=== PATIENT | male | born 1950 | race American Indian/Alaskan Native ===

== ENCOUNTER 2021-03-07 08:37 | Observation (INO) | payer MEDICARE ==
[2021-03-04 10:43] LABS: Albumin 4.4 g/dL (3.9-5); Calcium 9.9 mg/dL (8.4-10.2)
[2021-03-04 11:59] LABS: Hematocrit 39.6 % (35.5-45.6); Hemoglobin 13.5 gm/dl (11.8-15.2); Mean Corpuscular HGB Conc 34 % (32-34); Mean Corpuscular Volume 91 fl (84-94); Platelet Count 209 K/mm3 (140-440); Red Blood Count 4.35 M/mm3 (3.65-5.03); Red Cell Distribution Width 14.5 % (13.2-15.2)
[2021-03-04 12:42] LABS: Eosinophils # (Auto) 0.1 K/mm3 (0.0-0.4); Eosinophils % (Auto) 2.2 % (0.0-4.3); Lymphocytes # (Auto) 1.9 K/mm3 (1.2-5.4); Lymphocytes % (Auto) 38.6 % (13.4-35.0); Monocytes # (Auto) 0.5 K/mm3 (0.0-0.8); Monocytes % (Auto) 9.6 % (0.0-7.3)
[2021-03-04 12:55] LABS: Basophils % (Auto) 0.5 % (0.0-1.8)
[2021-03-07] MEDS ORDERED: ONDANSETRON 4 MG/2 ML INJ IV PRN ×2 (10:01→12:47)
[2021-03-07] MEDS ORDERED: HYDROmorphone 1 MG/1 ML INJ IV PRN ×2 (10:01)
--- NOTE | 2021-03-07 10:01 | Anesthesia Day of Surgery ---
Anesthesia Day of Surgery - Day of Surgery Patient Examined: Yes Patient H&P Reviewed: Yes Patient is NPO: Yes
--- NOTE | 2021-03-07 10:04 | Anesthesia Consultation ---
Anesthesia Consult and Med Hx Date of service: 03/07/21 - Airway Anesthetic Teeth Evaluation: Good (Missing) ROM Head & Neck: Adequate Mental/Hyoid Distance: Adequate Mallampati Class: Class II Intubation Access Assessment: Good - Pre-Operative Health Status ASA Pre-Surgery Classification: ASA2 Proposed Anesthetic Plan: General - Pulmonary Hx Smoking: No Hx Respiratory Symptoms: No (+2FS; walks one mile qd) Hx Sleep Apnea: No (DAMASO PRE SCREEN HIGH RISK) - Cardiovascular System Hx Hypertension: Yes (X 10 YRS. States he's had ECGs and one this year) Hx Cardia Arrhythmia: Yes - Central Nervous System Hx Psychiatric Problems: No - Endocrine Hx Renal Disease: Yes (Cr-1.6) - Hematic Hx Anemia: No - Other Systems Hx Cancer: No
[2021-03-07] MEDS ORDERED: LACTATED RINGERS 1,000 ML IV SCH (10:30)
[2021-03-07] MEDS ORDERED: MIDAZOLAM 2 MG/2 ML INJ IV NR (11:00)
[2021-03-07] MEDS ORDERED: propofoL 200 MG/20 ML VIAL IV ONE (11:01)
[2021-03-07] MEDS ORDERED: LIDOCAINE MPF (2%) 20 MG/1 ML VIAL 5 ML ONE (11:01)
[2021-03-07] MEDS ORDERED: HYDROmorphone 1 MG/1 ML INJ ONE (11:02)
--- NOTE | 2021-03-07 11:23 | Electrocardiograph Report ---
[facility] Test Date: 2021-03-07 Test Time: 10:29:58 Pat Name: JOY LESTER II Department: Room: Gender: M Transition Lead: NELLY : 1950 Requested By: LES BAR Order Number: [id number] Reading MD: Matthew Upton Measurements Intervals [place] Rate: 63 P: 2 NH: 166 QRS: 3 QRSD: 96 T: 19 QT: 396 QTc: 405 Interpretive Statements Sinus rhythm Supraventricular bigeminy No previous ECG available for comparison Electronically Signed On 03-07-2021 11:23:03 EDT by Matthew Upton
[2021-03-07] MEDS ORDERED: ceFAZolin/STERILE WATER 2 GM/20 ML SYRINGE IV NR (11:27)
[2021-03-07] MEDS ORDERED: MANNITOL/SORBITOL SOLUTION 3,000 ML IRRIG.SOLN IR ONE ×2 (12:00)
[2021-03-07] MEDS ORDERED: WATER FOR IRRIG STERILE 2000 ML IR ONE ×3 (12:01)
[2021-03-07] MEDS ORDERED: SODIUM CHLORIDE 0.9% IRRIG SOLN 2000 ML IR ONE ×2 (12:05)
[2021-03-07] MEDS ORDERED: ONDANSETRON 4 MG/2 ML INJ ONE (12:31)
--- NOTE | 2021-03-07 12:31 | Short Stay Summary ---
Short Stay Documentation Date of service: 03/07/21 - History H&P: obtained from office - Allergies and Medications Current Medications: Allergies No Known Allergies Allergy (Verified 03/04/21 10:38) Home Medications Medication Instructions Recorded Confirmed Last Taken Type Aspirin [Adult Aspirin] 81 mg PO DAILY 02/25/21 02/25/21 Unknown History Active Medications Cefazolin Sodium (Cefazolin/Sterile Water 2 Gm/20 Ml Syringe) 2 gm IV PREOP NR Stop: 03/07/21 23:00 Hydromorphone HCl (Hydromorphone 1 Mg/1 Ml Inj) 0.25 mg IV Q10MIN PRN PRN Reason: Pain, Moderate (4-6) Stop: 03/07/21 23:00 Hydromorphone HCl (Hydromorphone 1 Mg/1 Ml Inj) 0.5 mg IV Q10MIN PRN PRN Reason: Pain , Severe (7-10) Stop: 03/07/21 23:00 Lactated Ringer's (Lactated Ringers) 1,000 mls @ 125 mls/hr IV DIRECT CARIN Midazolam HCl (Midazolam 2 Mg/2 Ml Inj) 2 mg IV PREOP NR Stop: 03/07/21 23:59 Ondansetron HCl (Ondansetron 4 Mg/2 Ml Inj) 4 mg IV ONCE PRN PRN Reason: Nausea And Vomiting Stop: 03/07/21 20:00 - Brief post op/procedure progress note Date of procedure: 03/07/21 Pre-op diagnosis: bph, retention Post-op diagnosis: same Procedure: cysto, TURP Anesthesia: GETA Surgeon: DELFIN TORO Estimated blood loss: 50-100ml Pathology: list (prostate chips) Specimen disposition: to lab Condition: stable - Hospital course Hospital course: pt has bax & pain meds [place] pink tinged---home with nowak norco & bactrim - Disposition Condition at discharge: Stable Short Stay Discharge Plan Follow up with: MARIANNA AGUILLON MD [Primary Care Provider] - 7 Days
[2021-03-07] MEDS ORDERED: ACETAMINOPHEN 325 MG TAB PO PRN (12:47)
[2021-03-07] MEDS ORDERED: ZOLPIDEM 5 MG TAB PO PRN (12:47)
[2021-03-07] MEDS ORDERED: diphenhydrAMINE 25 MG CAP PO PRN (12:47)
[2021-03-07] MEDS ORDERED: NALOXONE 0.4 MG/1 ML INJ IV PRN (12:47)
[2021-03-07] MEDS ORDERED: HYDROcodone/ACETAMINOPHEN 5-325 MG TAB PO PRN (12:47)
--- NOTE | 2021-03-07 13:16 | Consultation ---
History of Present Illness - Reason for Consult Consult date: 03/07/21 Medical Management Requesting physician: DELFIN AIKEN - History of Present Illness 70 YO Male with Obesity, HTN, HLD, DM, OA admitted for Urologic surgery. Consult placed by Dr. Aiken for medical management. Patient seen and evaluated upon arrival to his room. Patient resting comfortably. Has pain. No reported nursing events. Past History Past Medical History: arthritis, diabetes, hypertension, hyperlipidemia Past Surgical History: Other (Prostatectomy) Social history: single. denies: smoking, alcohol abuse Family history: diabetes, hypertension Medications and Allergies Allergies Allergy/AdvReac Type Severity Reaction Status Date / Time No Known Allergies Allergy Verified 03/04/21 10:38 Home Medications Medication Instructions Recorded Confirmed Last Taken Type Aspirin [Adult Aspirin] 81 mg PO DAILY 02/25/21 03/07/21 02/28/21 History Finasteride [Proscar] 5 mg PO DAILY 03/07/21 03/07/21 03/06/21 History Ibuprofen [Motrin] 800 mg PO Q8HR PRN 03/07/21 03/07/21 02/28/21 History Losartan [Cozaar] 50 mg PO QDAY 03/07/21 03/07/21 03/06/21 History Meloxicam [Mobic] 15 mg PO DAILY 03/07/21 03/07/21 03/06/21 History Pravastatin [Pravachol] 80 mg PO QHS 03/07/21 03/07/21 03/06/21 History Sulfamethoxazole/Trimethoprim 1 each PO BID 03/07/21 03/07/21 03/06/21 History [Bactrim DS TAB] Tadalafil [Cialis] 5 mg PO DAILY 03/07/21 03/07/21 03/06/21 History Tamsulosin [Flomax] 0.4 mg PO DAILY 03/07/21 03/07/21 03/06/21 History amLODIPine [Norvasc] 10 mg PO DAILY 03/07/21 03/07/21 03/06/21 History metFORMIN [Glucophage] 500 mg PO BID 03/07/21 03/07/21 03/06/21 History oxyCODONE /ACETAMINOPHEN [Percocet 1 tab PO Q6HR PRN 03/07/21 03/07/21 03/06/21 History 5/325] tiZANidine [Zanaflex 4mg TAB] 4 mg PO DAILY 03/07/21 03/07/21 03/06/21 History Active Meds: Active Medications Acetaminophen (Acetaminophen 325 Mg Tab) 650 mg PO Q4H PRN PRN Reason: Pain, Mild (1-3)/Fever > 100.5 Hydrocodone Bitart/Acetaminophen (Hydrocodone/Acetaminophen 5-325 Mg Tab) 2 each PO Q4H PRN PRN Reason: Pain, Moderate (4-6) Amlodipine Besylate (Amlodipine 10 Mg Tab) 10 mg PO DAILY CARIN Cefazolin Sodium (Cefazolin/Sterile Water 2 Gm/20 Ml Syringe) 2 gm IV PREOP NR Stop: 03/07/21 23:00 Diphenhydramine HCl (Diphenhydramine 25 Mg Cap) 25 mg PO Q6H PRN PRN Reason: Itching Finasteride (Finasteride 5 Mg Tab) 5 mg PO DAILY CARIN Hydromorphone HCl (Hydromorphone 1 Mg/1 Ml Inj) 0.25 mg IV Q10MIN PRN PRN Reason: Pain, Moderate (4-6) Stop: 03/07/21 23:00 Hydromorphone HCl (Hydromorphone 1 Mg/1 Ml Inj) 0.5 mg IV Q10MIN PRN PRN Reason: Pain , Severe (7-10) Stop: 03/07/21 23:00 Lactated Ringer's (Lactated Ringers) 1,000 mls @ 125 mls/hr IV DIRECT CARIN Last Admin: 03/07/21 10:50 Dose: 125 mls/hr Documented by: Sodium Chloride (Nacl 0.9% 1000 Ml) 1,000 mls @ 100 mls/hr IV DIRECT CARIN Losartan Potassium (Losartan 50 Mg Tab) 50 mg PO QDAY CARIN Metformin HCl (Metformin 500 Mg Tab) 500 mg PO BID CARIN Midazolam HCl (Midazolam 2 Mg/2 Ml Inj) 2 mg IV PREOP NR Stop: 03/07/21 23:59 Last Admin: 03/07/21 10:55 Dose: 2 mg Documented by: Morphine Sulfate (Morphine 4 Mg/1 Ml Inj) 4 mg IV Q4H PRN PRN Reason: Pain , Severe (7-10) Naloxone HCl (Naloxone 0.4 Mg/1 Ml Inj) 0.1 mg IV Q2MIN PRN PRN Reason: Res Rate </= 8 or 02 SAT < 92% Ondansetron HCl (Ondansetron 4 Mg/2 Ml Inj) 4 mg IV ONCE PRN PRN Reason: Nausea And Vomiting Stop: 03/07/21 20:00 Ondansetron HCl (Ondansetron 4 Mg/2 Ml Inj) 4 mg IV Q8H PRN PRN Reason: Nausea And Vomiting Pravastatin Sodium (Pravastatin 80 Mg Tab) 80 mg PO QHS CARIN Sodium Chloride (Sodium Chloride 0.9% Irrig Soln 2000 Ml) 2,000 ml IR DIRECT CARIN Tizanidine HCl (Tizanidine Tab 4 Mg Tab) 4 mg PO DAILY CARIN Verapamil HCl (Verapamil 5 Mg/2 Ml Inj) 5 mg IV ONCE ONE Stop: 03/07/21 13:11 Zolpidem Tartrate (Zolpidem 5 Mg Tab) 5 mg PO QHS PRN PRN Reason: Sleep Review of Systems Constitutional: no weight loss, no weight gain, no chills, no sweats, no night sweats Ears, nose, mouth and throat: no ear pain, no ear discharge, no nose pain, no nasal congestion, no nasal discharge, no sinus pressure Cardiovascular: no chest pain, no orthopnea, no palpitations, no edema, no syn cope, no lightheadedness Respiratory: no cough, no excessive sputum, no hemoptysis, no shortness of breath, no dyspnea on exertion Gastrointestinal: no abdominal pain, no nausea, no vomiting, no diarrhea, no constipation, no change in bowel habits Genitourinary Male: urinary hesitancy, no hematuria, no flank pain Rectal: no pain, no incontinence, no bleeding Musculoskeletal: no neck stiffness, no neck pain, no arm numbness/tingling Integumentary: no rash, no pruritis, no redness, no sores, no jaundice, no boils Neurological: no paralysis, no weakness, no numbness, no tingling, no seizures, no tremors Psychiatric: no anxiety, no memory loss, no change in sleep habits, no insomnia, no hypersomnia Endocrine: no cold intolerance, no heat intolerance, no polydipsia, no polyuria, no excessive sweating Hematologic/Lymphatic: no easy bruising, no easy bleeding, no lymphadenopathy Allergic/Immunologic: no urticaria, no allergic rhinitis, no persistent infections, no anaphylaxis Exam - Constitutional Vitals: Temp Pulse Resp BP Pulse Ox 98.6 F 96 H 20 144/81 100 03/04/21 09:30 03/04/21 09:30 03/04/21 09:30 03/04/21 09:30 03/04/21 09:30 General appearance: Present: no acute distress, obese - EENT Eyes: Present: PERRL ENT: hearing intact, clear oral mucosa - Neck Neck: Present: supple, normal ROM - Respiratory Respiratory effort: normal Respiratory: bilateral: CTA - Cardiovascular Heart Sounds: Present: S1 & S2. Absent: rub, click - Extremities Extremities: pulses symmetrical, No edema Peripheral Pulses: within normal limits - Abdominal General gastrointestinal: Present: soft, non-tender, non-distended, normal bowel sounds Male genitourinary: Present: normal - Integumentary Integumentary: Present: clear, warm, dry - Musculoskeletal Musculoskeletal: gait normal, strength equal bilaterally - Psychiatric Psychiatric: appropriate mood/affect, intact judgment & insight - Neurologic Neurologic: CNII-XII intact, moves all extremities Results - Labs CBC & Chem 7: 03/04/21 09:30 03/04/21 09:14 Labs: Abnormal lab results 03/07/21 Range/Units 12:57 POC Glucose 111 H (70-105) mg/dL Assessment and Plan - Patient Problems (1) Hypertension Current Visit: Yes Status: Acute Qualifiers: Hypertension type: primary hypertension Qualified Code(s): I10 - Essential (primary) hypertension Plan to address problem: Monitor blood pressure every 6, continue medical management, resume prehospital antihypertensive therapy, pain control. (2) Hyperlipidemia Current Visit: Yes Status: Acute Qualifiers: Hyperlipidemia type: mixed hyperlipidemia Qualified Code(s): E78.2 - Mixed hyperlipidemia Plan to address problem: Low-cholesterol diet, statin therapy, supportive care. (3) Diabetes Current Visit: Yes Status: Acute Plan to address problem: Consistent carbohydrate diet, insulin protocol, hypoglycemia protocol, supportive care.
[2021-03-07] MEDS ORDERED: VERAPAMIL 5 MG/2 ML INJ IV ONE (14:00)
[2021-03-07] MEDS: SODIUM CHLORIDE 0.9% 1000 ML 1,000 ML IV SCH ×2 (14:07→22:35)
[2021-03-07] MEDS ORDERED: DEXTROSE 50% IN WATER (25GM) 50 ML SYRINGE IV PRN (14:18)
--- NOTE | 2021-03-07 14:22 | Operative Report ---
DATE OF SURGERY: 03/07/2021 PREOPERATIVE DIAGNOSES: Urinary retention, benign prostatic hypertrophy. POSTOPERATIVE DIAGNOSES: Urinary retention, benign prostatic hypertrophy. PROCEDURE: Cystoscopy, transurethral resection of prostate. SURGEON: Joel Aiken M.D. ANESTHESIA: General. ESTIMATED BLOOD LOSS: Minimal. FLUIDS: Crystalloid. COMPLICATIONS: No complications. INDICATIONS: This patient is a 70-year-old gentleman followed in the office for several years, developed urinary retention, failed medical therapy and actually has been on clean intermittent catheterization. Discussed options. He agreed to proceed with a TURP surgical intervention. Medical clearance was obtained. He has a history of hypertension, diabetes, hyperlipidemia. DESCRIPTION OF PROCEDURE: The patient was taken to the operative suite, placed in a supine position. After adequate general anesthesia, was placed in the dorsal lithotomy position, prepped and draped in a sterile fashion. Pancystourethroscopy was performed with a 22-[place]ine[place] Storz cystoscope. He also had a urethral dilatation to 30-[place]ine[place]. The patient had a moderate trilobar obstruction with a large median lobe, diffuse trabeculation. No tumors or stones. Ureteral orifices could not be appreciated. Next, using a 27-[place]ine[place] resectoscope and loop, we began cutting and coag on 160 and 60. Transurethral resection of the prostate was performed, taken down the median lobe and the left and lateral lobes respectively. Chips were evacuated out with the [employer] evacuator. Upon completion of the procedure, the veru and external sphincters were intact. A 22-[place] 3-way catheter with 50 mL in the balloon. It irrigated clear. I also used the rollerball to control bleeding. Rectal exam was benign. The patient tolerated the procedure well and was extubated and taken to recovery room. He will be observed overnight. TID: [id number] RECEIPT: [id number] PAIGE/VENANCIO
--- NOTE | 2021-03-07 14:53 | XRay Report ---
INTRAOPERATIVE FLUOROSCOPY: INDICATION / CLINICAL INFORMATION: ELEVATED BPH/URINARY RETENTION. TECHNIQUE: Intraoperative spot images were obtained during the procedure. FINDINGS: Intraoperative spot views of the abdomen prior to cystoscopy. Only school secretary images were obtained. Retrog rade ureterography was planned but not performed. Fluoroscopy Time: 2 seconds. Fluoroscopy Images: 2. Signer Name: Damian Morales MD Signed: 03/07/2021 2:49 PM Workstation Name: [id number]
--- NOTE | 2021-03-07 18:07 | Post Anesthesia Evaluation ---
- Post Anesthesia Evaluation Patient Participated: Yes Airway Patent: Yes Stable Respiratory Function: Yes Nausea/Vomiting: No Temp > 96.8F: Yes Pain Manageable: Yes Adequeate Hydration: Yes Anesthesia Complications: No Block Receding Appropriately: Not Applicable Patient on Ventilator: No
[2021-03-07] MEDS: INSULIN LISPRO 100 UNIT/ML SUB-Q SCH ×2 (19:40→21:18)
[2021-03-07] MEDS: SODIUM CHLORIDE 0.9% IRRIG SOLN 2000 ML IR SCH ×4 (21:11→22:15)
[2021-03-07] MEDS ORDERED: PRAVASTATIN 80 MG TAB PO SCH ×2 (22:00)
[2021-03-07] MEDS ORDERED: metFORMIN 500 MG TAB PO SCH (22:00)
[2021-03-07] MEDS: MORPHINE 4 MG/1 ML INJ IV PRN (22:23)
[2021-03-08] MEDS: SODIUM CHLORIDE 0.9% IRRIG SOLN 2000 ML IR SCH ×4 (00:21→07:06)
[2021-03-08] MEDS ORDERED: hydrALAZINE 20 MG/1 ML INJ IV ONE (01:58)
[2021-03-08] MEDS ORDERED: hydrALAZINE 20 MG/1 ML INJ IV PRN (06:00)
[2021-03-08] MEDS ORDERED: SODIUM CHLORIDE IRRI 1000 ML 1,000 ML IR ONE (06:17)
[2021-03-08] MEDS: MORPHINE 4 MG/1 ML INJ IV PRN (06:35)
[2021-03-08 08:33] VITALS: BP 163/84
--- NOTE | 2021-03-08 08:49 | Progress Note ---
Assessment and Plan Assessment and plan: (1) Hypertension Current Visit: Yes Status: Acute Qualifiers: Hypertension type: primary hypertension Qualified Code(s): I10 - Essential (primary) hypertension Plan to address problem: Monitor blood pressure every 6, continue medical management, resume prehospital antihypertensive therapy, pain control. (2) Hyperlipidemia Current Visit: Yes Status: Acute Qualifiers: Hyperlipidemia type: mixed hyperlipidemia Qualified Code(s): E78.2 - Mixed hyperlipidemia Plan to address problem: Low-cholesterol diet, statin therapy, supportive care. (3) Diabetes Current Visit: Yes Status: Acute Plan to address problem: Consistent carbohydrate diet, insulin protocol, hypoglycemia protocol, supportive care. Blood pressure still high but patient is on IV fluids. Patient's blood pressure will be corrected once he took his morning medications and IV fluids discontinued. Discharge is per Urology. History Interval history: Patient was seen and evaluated this morning Patient admitted by urology Hospitalist Physical - Physical exam Narrative exam: Not in cardiopulmonary distress. The patient appeared well nourished and normally developed. Vital signs as documented. Head exam is unremarkable. No scleral icterus . Neck is without jugular venous distension, thyromegaly, or carotid bruits. Lungs are clear to auscultation. Cardiac exam reveals regular rate and Rhythm. Abdominal exam reveals normal bowel sounds, nontender, no organomegaly. Extremities are nonedematous and both femoral and pedal pulses are normal. ARMOURED CAR ESCORT: Alert and oriented 3. No focal weakness. - Constitutional Vitals: Temp Pulse Resp BP Pulse Ox 99.4 F 83 18 163/84 97 03/08/21 07:32 03/08/21 07:32 03/08/21 07:32 03/08/21 07:32 03/08/21 07:32 General appearance: Present: no acute distress, obese Results - Labs CBC & Chem 7: 03/04/21 09:30 03/04/21 09:14 Labs: Laboratory Last Values WBC 4.6 K/mm3 (4.5-11.0) 03/04/21 09:30 RBC 4.35 M/mm3 (3.65-5.03) 03/04/21 09:30 Hgb 13.5 gm/dl (11.8-15.2) 03/04/21 09:30 Hct 39.6 % (35.5-45.6) 03/04/21 09:30 MCV 91 fl (84-94) 03/04/21 09:30 MCH 31 pg (28-32) 03/04/21 09:30 MCHC 34 % (32-34) 03/04/21 09:30 RDW 14.5 % (13.2-15.2) 03/04/21 09:30 Plt Count 209 K/mm3 (140-440) 03/04/21 09:30 Lymph % (Auto) 38.6 % (13.4-35.0) H 03/04/21 09:30 [place] % (Auto) 9.6 % (0.0-7.3) H 03/04/21 09:30 Eos % (Auto) 2.2 % (0.0-4.3) 03/04/21 09:30 Baso % (Auto) 0.5 % (0.0-1.8) 03/04/21 09:30 Lymph # (Auto) 1.9 K/mm3 (1.2-5.4) 03/04/21 09:30 [place] # (Auto) 0.5 K/mm3 (0.0-0.8) 03/04/21 09:30 Eos # (Auto) 0.1 K/mm3 (0.0-0.4) 03/04/21 09:30 Baso # (Auto) 0.0 K/mm3 (0.0-0.1) 03/04/21 09:30 Add Manual Diff Complete 03/04/21 09:30 Seg Neutrophils % 49.1 % (40.0-70.0) 03/04/21 09:30 Nucleated RBC % Not Reportable 03/04/21 09:30 Seg Neutrophils # 2.4 K/mm3 (1.8-7.7) 03/04/21 09:30 WBC Morphology Not Reportable 03/04/21 09:30 Hypersegmented Neuts Not Reportable 03/04/21 09:30 Hyposegmented Neuts Not Reportable 03/04/21 09:30 Hypogranular Neuts Not Reportable 03/04/21 09:30 Smudge Cells Not Reportable 03/04/21 09:30 Toxic Granulation Not Reportable 03/04/21 09:30 Toxic Vacuolation Not Reportable 03/04/21 09:30 Dohle Bodies Not Reportable 03/04/21 09:30 Pelger-Huet Anomaly Not Reportable 03/04/21 09:30 Dominik Rods Not Reportable 03/04/21 09:30 Platelet Estimate Not Reportable 03/04/21 09:30 Clumped Platelets Not Reportable 03/04/21 09:30 Plt Clumps, EDTA Not Reportable 03/04/21 09:30 Large Platelets Not Reportable 03/04/21 09:30 Giant Platelets Not Reportable 03/04/21 09:30 Platelet Satelliting Not Reportable 03/04/21 09:30 Plt Morphology Comment Not Reportable 03/04/21 09:30 RBC Morphology Not Reportable 03/04/21 09:30 Dimorphic RBCs Not Reportable 03/04/21 09:30 Polychromasia Not Reportable 03/04/21 09:30 Hypochromasia Not Reportable 03/04/21 09:30 Poikilocytosis Not Reportable 03/04/21 09:30 Anisocytosis Not Reportable 03/04/21 09:30 Microcytosis Not Reportable 03/04/21 09:30 Macrocytosis Not Reportable 03/04/21 09:30 Spherocytes Not Reportable 03/04/21 09:30 Pappenheimer Bodies Not Reportable 03/04/21 09:30 Sickle Cells Not Reportable 03/04/21 09:30 Target Cells Not Reportable 03/04/21 09:30 Tear Drop Cells Not Reportable 03/04/21 09:30 Ovalocytes Not Reportable 03/04/21 09:30 Helmet Cells Not Reportable 03/04/21 09:30 Ochoa-Brinckerhoff Bodies Not Reportable 03/04/21 09:30 Arminto Rings Not Reportable 03/04/21 09:30 [place] Cells Not Reportable 03/04/21 09:30 Bite Cells Not Reportable 03/04/21 09:30 Crenated Cell Not Reportable 03/04/21 09:30 Elliptocytes Not Reportable 03/04/21 09:30 Acanthocytes (Spur) Not Reportable 03/04/21 09:30 Rouleaux Not Reportable 03/04/21 09:30 Hemoglobin C Crystals Not Reportable 03/04/21 09:30 Schistocytes Not Reportable 03/04/21 09:30 Malaria parasites Not Reportable 03/04/21 09:30 Terrell Bodies Not Reportable 03/04/21 09:30 Hem Pathologist Commnt No 03/04/21 09:30 Sodium 143 mmol/L (137-145) 03/04/21 09:14 Potassium 3.8 mmol/L (3.6-5.0) 03/04/21 09:14 Chloride 105.4 mmol/L (98-107) 03/04/21 09:14 Carbon Dioxide 25 mmol/L (22-30) 03/04/21 09:14 Anion Gap 16 mmol/L 03/04/21 09:14 BUN 26 mg/dL (9-20) H 03/04/21 09:14 Creatinine 1.6 mg/dL (0.8-1.3) H 03/04/21 09:14 Estimated GFR 52 ml/min 03/04/21 09:14 BUN/Creatinine Ratio 16 % 03/04/21 09:14 Glucose 111 mg/dL (75-100) H 03/04/21 09:14 POC Glucose 123 mg/dL (70-105) H 03/08/21 07:32 Calcium 9.9 mg/dL (8.4-10.2) 03/04/21 09:14 Total Bilirubin 0.90 mg/dL (0.1-1.2) 03/04/21 09:14 AST 16 units/L (5-40) 03/04/21 09:14 ALT 17 units/L (7-56) 03/04/21 09:14 Alkaline Phosphatase 98 units/L (35-129) 03/04/21 09:14 Total Protein 7.6 g/dL (6.3-8.2) 03/04/21 09:14 Albumin 4.4 g/dL (3.9-5) 03/04/21 09:14 Albumin/Globulin Ratio 1.4 % 03/04/21 09:14 Coronavirus (PCR) Negative (Negative) 03/04/21 09:20 [place]/IV: Voiding Method Indwelling Catheter Active Medications - Current Medications Current Medications: Generic Name Dose Route Start Last Admin Trade Name Freq PRN Reason Stop Dose Admin Acetaminophen 650 mg 03/07/21 12:47 Acetaminophen 325 Mg Tab PO Q4H PRN Pain, Mild (1-3)/Fever > 100.5 Hydrocodone Bitart/Acetaminophen 2 each 03/07/21 12:47 Hydrocodone/Acetaminophen 5-325 Mg Tab PO Q4H PRN Pain, Moderate (4-6) Amlodipine Besylate 10 mg 03/08/21 10:00 Amlodipine 10 Mg Tab PO DAILY CARIN Dextrose 50 ml 03/07/21 14:18 Dextrose 50% In Water (25gm) 50 Ml Syringe IV Q30MIN PRN Hypoglycemia Protocol Diphenhydramine HCl 25 mg 03/07/21 12:47 Diphenhydramine 25 Mg Cap PO Q6H PRN Itching Finasteride 5 mg 03/08/21 10:00 Finasteride 5 Mg Tab PO DAILY CARIN Hydralazine HCl 20 mg 03/08/21 06:00 Hydralazine 20 Mg/1 Ml Inj IV Q4H PRN elevated bp Lactated Ringer's 1,000 mls @ 125 mls/hr 03/07/21 10:30 03/07/21 10:50 Lactated Ringers IV 125 mls/hr DIRECT CARIN Administration Sodium Chloride 1,000 mls @ 100 mls/hr 03/07/21 13:00 03/07/21 22:35 Nacl 0.9% 1000 Ml IV 100 mls/hr DIRECT CARIN Administration Insulin Human Lispro 0 unit 03/07/21 16:30 03/07/21 21:18 Insulin Lispro 100 Unit/Ml SUB-Q Not Given ACHS [facility] Protocol Losartan Potassium 50 mg 03/08/21 10:00 Losartan 50 Mg Tab PO QDAY CARIN Morphine Sulfate 4 mg 03/07/21 12:47 03/08/21 06:35 Morphine 4 Mg/1 Ml Inj IV 4 mg Q4H PRN Administration Pain , Severe (7-10) Naloxone HCl 0.1 mg 03/07/21 12:47 Naloxone 0.4 Mg/1 Ml Inj IV Q2MIN PRN Res Rate </= 8 or 02 SAT < 92% Ondansetron HCl 4 mg 03/07/21 12:47 Ondansetron 4 Mg/2 Ml Inj IV Q8H PRN Nausea And Vomiting Pravastatin Sodium 80 mg 03/07/21 22:00 03/07/21 22:13 Pravastatin 80 Mg Tab PO 80 mg QHS CARIN Administration Sodium Chloride 2,000 ml 03/07/21 13:00 03/08/21 07:06 Sodium Chloride 0.9% Irrig Soln 2000 Ml IR 2,000 ml DIRECT CARIN Administration Tizanidine HCl 4 mg 03/08/21 10:00 Tizanidine Tab 4 Mg Tab PO DAILY CARIN Zolpidem Tartrate 5 mg 03/07/21 12:47 Zolpidem 5 Mg Tab PO QHS PRN Sleep
[2021-03-08 09:21] LABS: Hemoglobin 12.5 gm/dl (11.8-15.2)
[2021-03-08 09:39] LABS: BUN/Creatinine Ratio 15; Blood Urea Nitrogen 15 mg/dL (9-20); Calcium 9.1 mg/dL (8.4-10.2); Hemolysis Index 4
[2021-03-08] MEDS ORDERED: LOSARTAN 50 MG TAB PO SCH (10:00)
[2021-03-08] MEDS ORDERED: amLODIPine 10 MG TAB PO SCH (10:00)
[2021-03-08] MEDS ORDERED: tiZANidine TAB 4 MG TAB PO SCH (10:00)
[2021-03-08] MEDS ORDERED: FINASTERIDE 5 MG TAB PO SCH (10:00)
--- NOTE | 2021-03-08 13:57 | Event Note ---
Date: 03/08/21 Patient discharged earlier this morning before I rounded on the patient.
== END 2021-03-08 09:35 | disposition home or self-care (01) ==
LOC: OR 08:37 → 3A 12:47 → 3B-SURG 18:20
PROVIDERS: ADMIT Urology; ATTEND Urology
DX: N40.1 Benign prostatic hyperplasia with lower urinary tract symptoms (principal); Z20.822 Contact with and (suspected) exposure to COVID-19; N41.9 Inflammatory disease of prostate, unspecified; I10 Essential (primary) hypertension; E11.9 Type 2 diabetes mellitus without complications; E78.00 Pure hypercholesterolemia, unspecified; E78.5 Hyperlipidemia, unspecified; R33.8 Other retention of urine; Z79.82 Long term (current) use of aspirin
CPT/HCPCS: 36415; 52601; 74018; 80048; 80053; 82962; 85014; 85018; 85025; 88305; 93005; 96361; 96374; 96375; 96376; A4217; A9270; G0378; J0360; J0690; J1170; J2250; J2270; J2405; J2704; J7030; J7120; U0003; 85007

== ENCOUNTER 2021-06-15 07:48 | Day surgery (SDC) | payer MEDICARE ==
[~2021-06-15 07:48] MED LIST: WATER FOR IRRIG STERILE 1,500 ML BOTTLE IR ONE; WATER FOR IRRIG STERILE 2000 ML IR ONE
[2021-06-15] MEDS ORDERED: ceFAZolin/STERILE WATER 2 GM/20 ML SYRINGE IV NR (09:00)
[2021-06-15] MEDS ORDERED: HYDROmorphone 1 MG/1 ML INJ IV PRN ×2 (09:00→09:30)
--- NOTE | 2021-06-15 09:03 | Anesthesia Day of Surgery ---
Anesthesia Day of Surgery - Day of Surgery Patient Examined: Yes Patient H&P Reviewed: Yes Patient is NPO: Yes
--- NOTE | 2021-06-15 09:04 | Anesthesia Consultation ---
Anesthesia Consult and Med Hx Date of service: 06/15/21 - Airway Anesthetic Teeth Evaluation: Good ROM Head & Neck: Adequate Mental/Hyoid Distance: Adequate Mallampati Class: Class II Intubation Access Assessment: Good - Pre-Operative Health Status ASA Pre-Surgery Classification: ASA2 Proposed Anesthetic Plan: General - Pulmonary Hx Smoking: No Hx Respiratory Symptoms: No (+2FS; walks one mile qd) Hx Sleep Apnea: No (DAMASO PRE SCREEN HIGH RISK) - Cardiovascular System Hx Hypertension: Yes (X 10 YRS) Hx Heart Attack/AMI: No (Pt reports negative stress test 1.5-2 years ago) Hx Cardia Arrhythmia: Yes - Central Nervous System Hx Psychiatric Problems: No - Endocrine Hx Renal Disease: Yes Hx Non-Insulin Dependent Diabetes: Yes - Hematic Hx Anemia: No Hx Sickle Cell Disease: No - Other Systems Hx Cancer: No - Additional Comments Anesthesia Medical History Comments: Here [id number]
[2021-06-15] MEDS ORDERED: propofoL 200 MG/20 ML VIAL IV ONE (09:21)
[2021-06-15] MEDS ORDERED: LIDOCAINE MPF (2%) 20 MG/1 ML VIAL 5 ML ONE (09:21)
[2021-06-15] MEDS ORDERED: HYDROmorphone 1 MG/1 ML INJ ONE (09:21)
[2021-06-15] MEDS ORDERED: ONDANSETRON 4 MG/2 ML INJ IV PRN (09:30)
[2021-06-15] MEDS ORDERED: MIDAZOLAM 2 MG/2 ML INJ ONE (09:52)
[2021-06-15] MEDS ORDERED: MIDAZOLAM 2 MG/2 ML INJ IV NR (10:00)
[2021-06-15] MEDS ORDERED: LACTATED RINGERS 1,000 ML IV SCH (10:00)
[2021-06-15] MEDS ORDERED: WATER FOR IRRIG STERILE 2000 ML IR ONE (10:15)
[2021-06-15] MEDS ORDERED: WATER FOR IRRIG STERILE 1,500 ML BOTTLE IR ONE (10:15)
[2021-06-15] MEDS ORDERED: IOHEXOL 300 MG/ML 50ML IV ONE ×2 (10:18)
[2021-06-15] MEDS ORDERED: ONDANSETRON 4 MG/2 ML INJ ONE (11:09)
--- NOTE | 2021-06-15 11:10 | Short Stay Summary ---
Short Stay Documentation Date of service: 06/15/21 - History H&P: obtained from office - Allergies and Medications Current Medications: Allergies No Known Allergies Allergy (Verified 03/04/21 10:38) Home Medications Medication Instructions Recorded Confirmed Last Taken Type Aspirin [Adult Aspirin] 81 mg PO DAILY 02/25/21 06/13/21 06/14/21 History Finasteride [Proscar] 5 mg PO DAILY 03/07/21 06/13/21 06/14/21 History Ibuprofen [Motrin] 800 mg PO Q8HR PRN 03/07/21 06/13/21 02/28/21 History Losartan [Cozaar] 50 mg PO QDAY 03/07/21 06/13/21 06/14/21 History Meloxicam [Mobic] 15 mg PO DAILY 03/07/21 06/13/21 06/14/21 History Pravastatin [Pravachol] 80 mg PO QHS 03/07/21 06/13/21 06/14/21 History Sulfamethoxazole/Trimethoprim 1 each PO BID 03/07/21 06/13/21 06/14/21 History [Bactrim DS TAB] Tadalafil [Cialis] 5 mg PO DAILY 03/07/21 06/13/21 06/14/21 History Tamsulosin [Flomax] 0.4 mg PO DAILY 03/07/21 06/13/21 06/14/21 History amLODIPine [Norvasc] 10 mg PO DAILY 03/07/21 06/13/21 06/14/21 History metFORMIN [Glucophage] 500 mg PO BID 03/07/21 06/13/21 06/14/21 History oxyCODONE /ACETAMINOPHEN [Percocet 1 tab PO Q6HR PRN 03/07/21 06/13/21 06/14/21 History 5/325] tiZANidine [Zanaflex 4mg TAB] 4 mg PO DAILY 03/07/21 06/13/21 06/14/21 History Active Medications Cefazolin Sodium (Cefazolin/Sterile Water 2 Gm/20 Ml Syringe) 2 gm IV PREOP NR Stop: 06/15/21 21:00 Hydromorphone HCl (Hydromorphone 1 Mg/1 Ml Inj) 0.25 mg IV Q10MIN PRN PRN Reason: Pain, Moderate (4-6) Stop: 06/15/21 17:00 Hydromorphone HCl (Hydromorphone 1 Mg/1 Ml Inj) 0.5 mg IV Q10MIN PRN PRN Reason: Pain , Severe (7-10) Stop: 06/15/21 17:00 Lactated Ringer's (Lactated Ringers) 1,000 mls @ 100 mls/hr IV DIRECT CARIN Last Admin: 06/15/21 09:10 Dose: 100 mls/hr Documented by: Midazolam HCl (Midazolam 2 Mg/2 Ml Inj) 2 mg IV PREOP NR Stop: 06/15/21 23:59 Last Admin: 06/15/21 09:25 Dose: 2 mg Documented by: Ondansetron HCl (Ondansetron 4 Mg/2 Ml Inj) 4 mg IV ONCE PRN PRN Reason: Nausea And Vomiting Stop: 06/15/21 17:00 - Brief post op/procedure progress note Date of procedure: 06/15/21 Pre-op diagnosis: urethral stricture Post-op diagnosis: same Procedure: urethrogram, cystogram, DVIU Anesthesia: GETA Surgeon: DELFIN TORO Estimated blood loss: minimal Pathology: none Condition: stable - Hospital course Hospital course: bactrim & norco - Disposition Condition at discharge: Stable Disposition: 01 HOME / SELF CARE / HOMELESS Short Stay Discharge Plan Follow up with: MARIANNA AGUILLON MD [Primary Care Provider] - 7 Days
[2021-06-15] MEDS ORDERED: MEPERIDINE 25 MG/1 ML INJ ONE (11:39)
[2021-06-15] MEDS: MEPERIDINE 25 MG/1 ML INJ IV PRN ×2 (11:45→12:00)
--- NOTE | 2021-06-15 11:53 | Operative Report ---
DATE OF SURGERY: 06/15/2021 PREOPERATIVE DIAGNOSES: Urinary retention with suprapubic catheter. POSTOPERATIVE DIAGNOSES: Urinary retention with suprapubic catheter, bladder neck contracture. PROCEDURE: Cystoscopy via suprapubic catheter, cystogram, retrograde urethrogram direct vision internal urethrotomy. SURGEON: Joel Aiken MD ANESTHESIA: General. ESTIMATED BLOOD LOSS: Minimal. FLUIDS: Crystalloid. COMPLICATIONS: No complications. INDICATIONS: A 71-year-old gentleman initially seen in followup for several years for an elevated PSA. Biopsy negative and urinary retention, ultimately underwent a TURP [facility] several months ago. He did well, only, he took a long trip to [place] and afterwards developed urinary retention, was unable to catheterization. He was presented to the office. I scoped him was unable to place a catheter and at that point, placed a suprapubic catheter. He was able to travel again, came back and presents now for surgical intervention. DESCRIPTION OF PROCEDURE: The patient was taken to the operative suite, placed in the supine position. After adequate general anesthesia, placed in the dorsal lithotomy position, prepped and draped in a sterile fashion. Pancystourethroscopy was performed with a 22-[place]an scope. Multiple attempts to advance a 0.035 Glidewire was unsuccessful. A flexible cystoscopy via the suprapubic tract was able to see the bladder neck, but again could not advance a wire. Cystogram and retrograde urethrogram revealed this small gap less than 5 mm suggesting a thin bladder neck contracture. At that point, I used a cold knife. I made a small cut advanced past the verumontanum into the prostate, which is nonobstructing of the lateral lobes; however, he just had a wall of scar, made a little jackelin, could see the bladder was able to advance a wire into the bladder and therefore, I do another 12 o'clock cut to allow it to advance the scope into the bladder. No tumors, no stones. A 16-Singaporean bill moore's slough tip catheter was then advanced over the wire. Suprapubic tube was removed. Rectal exam was benign. The patient tolerated the procedure well and was extubated and taken to recovery room. He will go home on Bactrim and [place] and follow up in the office for Osullivan catheter removal next week. TID: [id number] RECEIPT: [id number] PAIGE/MOY
[2021-06-15 14:09] VITALS: BP 154/86
--- NOTE | 2021-06-15 15:03 | Fluoroscopy Report ---
FL retrograde urethrogram-OR Technique: Intraoperative fluoroscopic guidance was provided. Fluoroscopy time: 0 minutes. Fluoroscopy images: 1. Findings/Impression: Intraoperative fluoroscopic guidance for Dr. Aiken. Please see procedure report for further details. Signer Name: Alexandr Maldonado MD Signed: 06/15/2021 2:58 PM Workstation Name: [id number]
--- NOTE | 2021-06-15 15:04 | Fluoroscopy Report ---
FL cystogram static-OR Technique: Intraoperative fluoroscopic guidance was provided. Fluoroscopy time: 1.1 minutes. Fluoroscopy images: 6. Findings/Impression: Intraoperative fluoroscopic guidance for cystogram. Limited images demonstrate n ormal filling of the bladder without discrete filling defect or extravasation. Please see procedure r eport for further details. Signer Name: Alexandr Maldonado MD Signed: 06/15/2021 2:59 PM Workstation Name: [id number]
== END 2021-06-15 07:49 | disposition home or self-care (01) ==
LOC: OR 07:48
PROVIDERS: ATTEND Urology
DX: R33.9 Retention of urine, unspecified (principal); N32.0 Bladder-neck obstruction; I12.9 Hypertensive chronic kidney disease with stage 1 through stage 4 chronic kidney disease, or unspecified chronic kidney disease; E11.22 Type 2 diabetes mellitus with diabetic chronic kidney disease; N18.9 Chronic kidney disease, unspecified; Z79.82 Long term (current) use of aspirin; Z79.899 Other long term (current) drug therapy; Z98.890 Other specified postprocedural states
CPT/HCPCS: 51102; 52276; 74430; 74450; 82962; A4217; C1758; C1769; J0690; J1170; J2175; J2250; J2405; J2704; J7120; Q9967